=== PATIENT | female | born 1975 | race Hispanic/Latino ===

== ENCOUNTER → 2024-01-29 | Outpatient (REF) | payer OTHER ==
[~2024-01-29] MED LIST: LIDOCAINE VISC 2% SOLN 15 ML UDC ONE; LIDOCAINE/PRILOCAINE 2.5-2.5% KIT ONE
== END ==
LOC: WCC 13:48
PROVIDERS: ATTEND Nurse Practitioner Family
DX: L97.828 Non-pressure chronic ulcer of other part of left lower leg with other specified severity (principal); R60.0 Localized edema

== ENCOUNTER → 2024-02-22 | Outpatient (REF) | payer OTHER | LOC: WCC 12:07 | PROVIDERS: ATTEND Nurse Practitioner Family | DX: L97.828 Non-pressure chronic ulcer of other part of left lower leg with other specified severity (principal); R60.0 Localized edema ==

== ENCOUNTER → 2024-03-11 | Outpatient (REF) | payer OTHER | LOC: WCC 11:05 | PROVIDERS: ATTEND Nurse Practitioner Family | DX: L97.828 Non-pressure chronic ulcer of other part of left lower leg with other specified severity (principal); R60.0 Localized edema ==

== ENCOUNTER → 2024-04-25 | Outpatient (REF) | payer OTHER ==
[~2024-04-25] MED LIST changes: +COLLAGENASE OINTMENT 30 GM TUBE ONE; -LIDOCAINE VISC 2% SOLN 15 ML UDC ONE; -LIDOCAINE/PRILOCAINE 2.5-2.5% KIT ONE; +MINERAL OIL/PETROLAT/GLYCERI 6OZ BTL ONE
== END ==
LOC: WCC 08:00
PROVIDERS: ATTEND Nurse Practitioner Family
DX: L97.828 Non-pressure chronic ulcer of other part of left lower leg with other specified severity (principal); R60.0 Localized edema

== ENCOUNTER → 2024-04-27 | Outpatient (REF) | payer OTHER ==
[~2024-04-27] MED LIST changes: -COLLAGENASE OINTMENT 30 GM TUBE ONE; +LIDOCAINE VISC 2% SOLN 15 ML UDC ONE; -MINERAL OIL/PETROLAT/GLYCERI 6OZ BTL ONE
== END ==
LOC: WCC 08:00
PROVIDERS: ATTEND Nurse Practitioner Family
DX: L97.828 Non-pressure chronic ulcer of other part of left lower leg with other specified severity (principal); R60.0 Localized edema

== ENCOUNTER → 2024-05-06 | Outpatient (REF) | payer OTHER ==
[~2024-05-06] MED LIST changes: -LIDOCAINE VISC 2% SOLN 15 ML UDC ONE; +LIDOCAINE/PRILOCAINE 2.5-2.5% KIT ONE; +TRIAMCINOLONE ACET 0.1% CREAM 15 GM TUBE ONE
== END ==
LOC: WCC 08:00
PROVIDERS: ATTEND Nurse Practitioner Family
DX: L97.828 Non-pressure chronic ulcer of other part of left lower leg with other specified severity (principal); R60.0 Localized edema

== ENCOUNTER → 2024-05-09 | Outpatient (REF) | payer OTHER ==
[~2024-05-09] MED LIST changes: +LIDOCAINE VISC 2% SOLN 15 ML UDC ONE; -LIDOCAINE/PRILOCAINE 2.5-2.5% KIT ONE; +MINERAL OIL/PETROLAT/GLYCERI 6OZ BTL ONE
== END ==
LOC: WCC 15:22
PROVIDERS: ATTEND Nurse Practitioner Family
DX: L97.828 Non-pressure chronic ulcer of other part of left lower leg with other specified severity (principal); R60.0 Localized edema

== ENCOUNTER → 2024-05-11 | Outpatient (REF) | payer OTHER ==
[~2024-05-11] MED LIST changes: -LIDOCAINE VISC 2% SOLN 15 ML UDC ONE; -MINERAL OIL/PETROLAT/GLYCERI 6OZ BTL ONE
== END ==
LOC: WCC 12:43
PROVIDERS: ATTEND Nurse Practitioner Family
DX: L97.828 Non-pressure chronic ulcer of other part of left lower leg with other specified severity (principal); R60.0 Localized edema

== ENCOUNTER → 2024-05-13 | Outpatient (REF) | payer OTHER | LOC: WCC 15:24 | PROVIDERS: ATTEND Nurse Practitioner Family | DX: L97.828 Non-pressure chronic ulcer of other part of left lower leg with other specified severity (principal); R60.0 Localized edema ==

== ENCOUNTER → 2024-05-18 | Outpatient (REF) | payer OTHER | LOC: WCC 12:43 | PROVIDERS: ATTEND Nurse Practitioner Family | DX: I87.332 Chronic venous hypertension (idiopathic) with ulcer and inflammation of left lower extremity (principal); L97.822 Non-pressure chronic ulcer of other part of left lower leg with fat layer exposed; R60.0 Localized edema ==

== ENCOUNTER → 2024-05-20 | Outpatient (REF) | payer OTHER ==
[~2024-05-20] MED LIST changes: +LIDOCAINE VISC 2% SOLN 15 ML UDC ONE; +LIDOCAINE/PRILOCAINE 2.5-2.5% KIT ONE; +MINERAL OIL/PETROLAT/GLYCERI 6OZ BTL ONE; -TRIAMCINOLONE ACET 0.1% CREAM 15 GM TUBE ONE
== END ==
LOC: WCC 13:03
PROVIDERS: ATTEND Nurse Practitioner Family
DX: I87.332 Chronic venous hypertension (idiopathic) with ulcer and inflammation of left lower extremity (principal); L97.822 Non-pressure chronic ulcer of other part of left lower leg with fat layer exposed; R60.0 Localized edema

== ENCOUNTER → 2024-05-26 | Outpatient (REF) | payer OTHER ==
[~2024-05-26] MED LIST changes: -LIDOCAINE VISC 2% SOLN 15 ML UDC ONE; -LIDOCAINE/PRILOCAINE 2.5-2.5% KIT ONE
== END ==
LOC: WCC 11:53
PROVIDERS: ATTEND Nurse Practitioner Family
DX: I87.332 Chronic venous hypertension (idiopathic) with ulcer and inflammation of left lower extremity (principal); L97.822 Non-pressure chronic ulcer of other part of left lower leg with fat layer exposed; R60.0 Localized edema

== ENCOUNTER → 2024-05-30 | Outpatient (REF) | payer OTHER | LOC: WCC 11:00 | PROVIDERS: ATTEND Nurse Practitioner Family | DX: I87.332 Chronic venous hypertension (idiopathic) with ulcer and inflammation of left lower extremity (principal); L97.822 Non-pressure chronic ulcer of other part of left lower leg with fat layer exposed; R60.0 Localized edema ==

== ENCOUNTER → 2024-06-01 | Outpatient (REF) | payer OTHER | LOC: WCC 12:27 | PROVIDERS: ATTEND Nurse Practitioner Family | DX: I87.332 Chronic venous hypertension (idiopathic) with ulcer and inflammation of left lower extremity (principal); L97.822 Non-pressure chronic ulcer of other part of left lower leg with fat layer exposed; R60.0 Localized edema ==

== ENCOUNTER → 2024-06-03 | Outpatient (REF) | payer OTHER | LOC: WCC 12:24 | PROVIDERS: ATTEND Nurse Practitioner Family | DX: I87.332 Chronic venous hypertension (idiopathic) with ulcer and inflammation of left lower extremity (principal); L97.822 Non-pressure chronic ulcer of other part of left lower leg with fat layer exposed; R60.0 Localized edema ==

== ENCOUNTER → 2024-06-06 | Outpatient (REF) | payer OTHER | LOC: WCC 13:05 | PROVIDERS: ATTEND Nurse Practitioner Family | DX: I87.332 Chronic venous hypertension (idiopathic) with ulcer and inflammation of left lower extremity (principal); L97.822 Non-pressure chronic ulcer of other part of left lower leg with fat layer exposed; R60.0 Localized edema ==

== ENCOUNTER → 2024-06-08 | Outpatient (REF) | payer OTHER ==
[~2024-06-08] MED LIST changes: +LIDOCAINE/PRILOCAINE 2.5-2.5% KIT ONE; -MINERAL OIL/PETROLAT/GLYCERI 6OZ BTL ONE
== END ==
LOC: WCC 12:43
PROVIDERS: ATTEND Nurse Practitioner Family
DX: I87.332 Chronic venous hypertension (idiopathic) with ulcer and inflammation of left lower extremity (principal); L97.822 Non-pressure chronic ulcer of other part of left lower leg with fat layer exposed; R60.0 Localized edema

== ENCOUNTER → 2024-06-10 | Outpatient (REF) | payer OTHER ==
[~2024-06-10] MED LIST changes: -LIDOCAINE/PRILOCAINE 2.5-2.5% KIT ONE; +TRYPSIN/BALSAM PERU/CASTOR OIL ONE
== END ==
LOC: WCC 11:00
PROVIDERS: ATTEND Nurse Practitioner Family
DX: I87.332 Chronic venous hypertension (idiopathic) with ulcer and inflammation of left lower extremity (principal); L97.822 Non-pressure chronic ulcer of other part of left lower leg with fat layer exposed; R60.0 Localized edema

== ENCOUNTER → 2024-06-13 | Outpatient (REF) | payer OTHER ==
[~2024-06-13] MED LIST changes: +MINERAL OIL/PETROLAT/GLYCERI 6OZ BTL ONE; -TRYPSIN/BALSAM PERU/CASTOR OIL ONE
== END ==
LOC: WCC 13:30
PROVIDERS: ATTEND Nurse Practitioner Family
DX: I87.332 Chronic venous hypertension (idiopathic) with ulcer and inflammation of left lower extremity (principal); L97.822 Non-pressure chronic ulcer of other part of left lower leg with fat layer exposed; R60.0 Localized edema

== ENCOUNTER → 2024-06-16 | Outpatient (REF) | payer OTHER | LOC: WCC 11:05 | PROVIDERS: ATTEND Nurse Practitioner Family | DX: I87.332 Chronic venous hypertension (idiopathic) with ulcer and inflammation of left lower extremity (principal); L97.822 Non-pressure chronic ulcer of other part of left lower leg with fat layer exposed | CPT/HCPCS: 15271; 99212; Q4101 ×2 ==

== ENCOUNTER → 2024-06-20 | Outpatient (REF) | payer OTHER | LOC: WCC 15:12 | PROVIDERS: ATTEND Nurse Practitioner Family | DX: I87.332 Chronic venous hypertension (idiopathic) with ulcer and inflammation of left lower extremity (principal); L97.822 Non-pressure chronic ulcer of other part of left lower leg with fat layer exposed; R60.0 Localized edema ==

== ENCOUNTER → 2024-06-22 | Outpatient (REF) | payer OTHER ==
[~2024-06-22] MED LIST changes: -MINERAL OIL/PETROLAT/GLYCERI 6OZ BTL ONE; +TRIAMCINOLONE ACET 0.1% CREAM 15 GM TUBE ONE
== END ==
LOC: WCC 12:20
PROVIDERS: ATTEND Nurse Practitioner Family
DX: I87.332 Chronic venous hypertension (idiopathic) with ulcer and inflammation of left lower extremity (principal); L97.822 Non-pressure chronic ulcer of other part of left lower leg with fat layer exposed; R60.0 Localized edema

== ENCOUNTER → 2024-06-24 | Outpatient (REF) | payer OTHER ==
[~2024-06-24] MED LIST changes: +MINERAL OIL/PETROLAT/GLYCERI 6OZ BTL ONE
== END ==
LOC: WCC 11:52
PROVIDERS: ATTEND Nurse Practitioner Family
DX: I87.332 Chronic venous hypertension (idiopathic) with ulcer and inflammation of left lower extremity (principal); L97.822 Non-pressure chronic ulcer of other part of left lower leg with fat layer exposed; R60.0 Localized edema
CPT/HCPCS: 15271; 29581; 99212; Q4101 ×2

== ENCOUNTER → 2024-06-28 | Outpatient (REF) | payer OTHER | LOC: WCC 12:38 | PROVIDERS: ATTEND Nurse Practitioner Family | DX: I87.332 Chronic venous hypertension (idiopathic) with ulcer and inflammation of left lower extremity (principal); L97.822 Non-pressure chronic ulcer of other part of left lower leg with fat layer exposed; R60.0 Localized edema ==

== ENCOUNTER → 2024-07-01 | Outpatient (REF) | payer OTHER | LOC: WCC 15:44 | PROVIDERS: ATTEND Nurse Practitioner Family | DX: I87.332 Chronic venous hypertension (idiopathic) with ulcer and inflammation of left lower extremity (principal); L97.822 Non-pressure chronic ulcer of other part of left lower leg with fat layer exposed; R60.0 Localized edema ==

== ENCOUNTER → 2024-07-04 | Outpatient (REF) | payer OTHER | LOC: WCC 15:30 | PROVIDERS: ATTEND Nurse Practitioner Family | DX: I87.332 Chronic venous hypertension (idiopathic) with ulcer and inflammation of left lower extremity (principal); L97.822 Non-pressure chronic ulcer of other part of left lower leg with fat layer exposed; R60.0 Localized edema ==

== ENCOUNTER → 2024-07-06 | Outpatient (REF) | payer OTHER ==
[~2024-07-06] MED LIST changes: +LIDOCAINE/PRILOCAINE 2.5-2.5% KIT ONE; -TRIAMCINOLONE ACET 0.1% CREAM 15 GM TUBE ONE
== END ==
LOC: WCC 11:24
PROVIDERS: ATTEND Nurse Practitioner Family
DX: I87.332 Chronic venous hypertension (idiopathic) with ulcer and inflammation of left lower extremity (principal); L97.822 Non-pressure chronic ulcer of other part of left lower leg with fat layer exposed; R60.0 Localized edema
CPT/HCPCS: 15271; 99212; Q4101 ×2

== ENCOUNTER → 2024-07-15 | Outpatient (REF) | payer OTHER | LOC: WCC 10:29 | PROVIDERS: ATTEND Nurse Practitioner Family | DX: I87.332 Chronic venous hypertension (idiopathic) with ulcer and inflammation of left lower extremity (principal); L97.822 Non-pressure chronic ulcer of other part of left lower leg with fat layer exposed; R60.0 Localized edema ==

== ENCOUNTER → 2024-07-18 | Outpatient (REF) | payer OTHER ==
[~2024-07-18] MED LIST changes: -LIDOCAINE/PRILOCAINE 2.5-2.5% KIT ONE
== END ==
LOC: WCC 09:56
PROVIDERS: ATTEND Nurse Practitioner Family
DX: I87.332 Chronic venous hypertension (idiopathic) with ulcer and inflammation of left lower extremity (principal); L97.822 Non-pressure chronic ulcer of other part of left lower leg with fat layer exposed; R60.0 Localized edema

== ENCOUNTER → 2024-07-20 | Outpatient (REF) | payer OTHER ==
[~2024-07-20] MED LIST changes: +LIDOCAINE VISC 2% SOLN 15 ML UDC ONE
== END ==
LOC: WCC 13:00
PROVIDERS: ATTEND Nurse Practitioner Family
DX: I87.332 Chronic venous hypertension (idiopathic) with ulcer and inflammation of left lower extremity (principal); L97.822 Non-pressure chronic ulcer of other part of left lower leg with fat layer exposed; R60.0 Localized edema

== ENCOUNTER → 2024-07-26 | Outpatient (REF) | payer OTHER ==
[~2024-07-26] MED LIST changes: +LIDOCAINE/PRILOCAINE 2.5-2.5% KIT ONE; +TRIAMCINOLONE ACET 0.1% CREAM 15 GM TUBE ONE
== END ==
LOC: WCC 09:19
PROVIDERS: ATTEND Nurse Practitioner Family
DX: I87.332 Chronic venous hypertension (idiopathic) with ulcer and inflammation of left lower extremity (principal); L97.822 Non-pressure chronic ulcer of other part of left lower leg with fat layer exposed; R60.0 Localized edema

== ENCOUNTER → 2024-08-02 | Outpatient (REF) | payer OTHER | LOC: WCC 10:40 | PROVIDERS: ATTEND Nurse Practitioner Family | DX: I87.332 Chronic venous hypertension (idiopathic) with ulcer and inflammation of left lower extremity (principal); L97.822 Non-pressure chronic ulcer of other part of left lower leg with fat layer exposed; R60.0 Localized edema ==

== ENCOUNTER → 2024-08-09 | Outpatient (REF) | payer OTHER ==
[~2024-08-09] MED LIST changes: -TRIAMCINOLONE ACET 0.1% CREAM 15 GM TUBE ONE
== END ==
LOC: WCC 10:15
PROVIDERS: ATTEND Nurse Practitioner Family
DX: I87.332 Chronic venous hypertension (idiopathic) with ulcer and inflammation of left lower extremity (principal); L97.822 Non-pressure chronic ulcer of other part of left lower leg with fat layer exposed; R60.0 Localized edema

== ENCOUNTER → 2024-08-16 | Outpatient (REF) | payer OTHER | LOC: WCC 10:42 | PROVIDERS: ATTEND Nurse Practitioner Family | DX: I87.332 Chronic venous hypertension (idiopathic) with ulcer and inflammation of left lower extremity (principal); L97.822 Non-pressure chronic ulcer of other part of left lower leg with fat layer exposed; R60.0 Localized edema ==

== ENCOUNTER → 2024-08-23 | Outpatient (REF) | payer OTHER | LOC: WCC 10:40 | PROVIDERS: ATTEND Nurse Practitioner Family | DX: I87.332 Chronic venous hypertension (idiopathic) with ulcer and inflammation of left lower extremity (principal); L97.822 Non-pressure chronic ulcer of other part of left lower leg with fat layer exposed; R60.0 Localized edema ==

== ENCOUNTER → 2024-08-26 | Outpatient (REF) | payer OTHER | LOC: WCC 08:00 | PROVIDERS: ATTEND Nurse Practitioner Family | DX: I87.332 Chronic venous hypertension (idiopathic) with ulcer and inflammation of left lower extremity (principal); L97.822 Non-pressure chronic ulcer of other part of left lower leg with fat layer exposed; R60.0 Localized edema ==

== ENCOUNTER → 2024-08-30 | Outpatient (REF) | payer OTHER | LOC: WCC 10:18 | PROVIDERS: ATTEND Nurse Practitioner Family | DX: I87.332 Chronic venous hypertension (idiopathic) with ulcer and inflammation of left lower extremity (principal); L97.822 Non-pressure chronic ulcer of other part of left lower leg with fat layer exposed; R60.0 Localized edema | CPT/HCPCS: 87071; 87075; 87186; 87205 ==

== ENCOUNTER → 2024-09-02 | Outpatient (REF) | payer OTHER | LOC: WCC 10:24 | PROVIDERS: ATTEND Nurse Practitioner Family | DX: I87.332 Chronic venous hypertension (idiopathic) with ulcer and inflammation of left lower extremity (principal); L97.822 Non-pressure chronic ulcer of other part of left lower leg with fat layer exposed; B96.5 Pseudomonas (aeruginosa) (mallei) (pseudomallei) as the cause of diseases classified elsewhere; R60.0 Localized edema ==

== ENCOUNTER → 2024-09-06 | Outpatient (REF) | payer OTHER | LOC: WCC 10:08 | PROVIDERS: ATTEND Nurse Practitioner Family | DX: I87.332 Chronic venous hypertension (idiopathic) with ulcer and inflammation of left lower extremity (principal); L97.822 Non-pressure chronic ulcer of other part of left lower leg with fat layer exposed; R60.0 Localized edema; B96.5 Pseudomonas (aeruginosa) (mallei) (pseudomallei) as the cause of diseases classified elsewhere ==

== ENCOUNTER → 2024-09-09 | Outpatient (REF) | payer OTHER | LOC: WCC 10:26 | PROVIDERS: ATTEND Nurse Practitioner Family | DX: I87.332 Chronic venous hypertension (idiopathic) with ulcer and inflammation of left lower extremity (principal); L97.822 Non-pressure chronic ulcer of other part of left lower leg with fat layer exposed; R60.0 Localized edema ==

== ENCOUNTER → 2024-09-14 | Outpatient (REF) | payer OTHER ==
[2024-09-14 15:03] LABS: BASOPHILS % 0.5 % (0.0-1.0); EOSINOPHILS % 0.6 % (0.0-6.0); HEMOGLOBIN 13.4 g/dL (12.0-16.0); LYMPHOCYTES # (AUTO) 2.1 (1.0-3.2); LYMPHOCYTES % 34.6 % (18.0-39.1); MEAN CORPUSCULAR HEMOGLOBIN 28.7 pg (28-32); MEAN CORPUSCULAR HGB CONC 31.2 g/dL (31-35); MEAN CORPUSCULAR VOLUME 92.1 fL (81-99); MONOCYTES # (AUTO) 0.4 (0.2-0.8); MONOCYTES % 6.6 % (4.4-11.3); NEUTROPHILS # (AUTO) 3.6 (2.1-6.9); NEUTROPHILS % 57.4 % (38.7-80.0); PLATELET COUNT 188 x10e3/uL (140-360); RED BLOOD COUNT 4.67 x10e6/uL (3.6-5.1); WHITE BLOOD COUNT 6.19 x10e3/uL (4.8-10.8)
[2024-09-14 15:23] LABS: ALBUMIN 3.7 g/dL (3.5-5.0); ALBUMIN/GLOBULIN RATIO 1.1 (0.8-2.0); ANION GAP 14.6 mmol/L (8-16); BILIRUBIN,TOTAL 0.5 mg/dL (0.2-1.2); CALCIUM 9.1 mg/dL (8.4-10.2); CREATININE, SERUM 0.97 mg/dL (0.57-1.11); POTASSIUM 3.6 mmol/L (3.5-5.1); TOTAL PROTEIN 7.2 g/dL (6.5-8.1)
== END ==
LOC: WCC 13:29
PROVIDERS: ATTEND Nurse Practitioner Family
DX: I87.332 Chronic venous hypertension (idiopathic) with ulcer and inflammation of left lower extremity (principal); L97.822 Non-pressure chronic ulcer of other part of left lower leg with fat layer exposed; R60.0 Localized edema
CPT/HCPCS: 36415; 80053; 84134; 85025

== ENCOUNTER → 2024-09-16 | Outpatient (REF) | payer OTHER | LOC: WCC 10:21 | PROVIDERS: ATTEND Nurse Practitioner Family | DX: I87.332 Chronic venous hypertension (idiopathic) with ulcer and inflammation of left lower extremity (principal); L97.822 Non-pressure chronic ulcer of other part of left lower leg with fat layer exposed; R60.0 Localized edema ==

== ENCOUNTER → 2024-09-19 | Outpatient (REF) | payer OTHER | LOC: WCC 10:40 | PROVIDERS: ATTEND Nurse Practitioner Family | DX: I87.332 Chronic venous hypertension (idiopathic) with ulcer and inflammation of left lower extremity (principal); L97.822 Non-pressure chronic ulcer of other part of left lower leg with fat layer exposed; R60.0 Localized edema ==

== ENCOUNTER → 2024-09-21 | Outpatient (REF) | payer OTHER | LOC: WCC 12:50 | PROVIDERS: ATTEND Nurse Practitioner Family | DX: I87.332 Chronic venous hypertension (idiopathic) with ulcer and inflammation of left lower extremity (principal); L97.822 Non-pressure chronic ulcer of other part of left lower leg with fat layer exposed; R60.0 Localized edema | CPT/HCPCS: 15271; 29581; 99212; Q4101 ×2 ==

== ENCOUNTER → 2024-09-28 | Outpatient (REF) | payer OTHER | LOC: WCC 13:00 | PROVIDERS: ATTEND Nurse Practitioner Family | DX: I87.332 Chronic venous hypertension (idiopathic) with ulcer and inflammation of left lower extremity (principal); L97.822 Non-pressure chronic ulcer of other part of left lower leg with fat layer exposed; L97.828 Non-pressure chronic ulcer of other part of left lower leg with other specified severity; R60.0 Localized edema ==

== ENCOUNTER → 2024-09-30 | Outpatient (REF) | payer OTHER ==
[~2024-09-30] MED LIST changes: -LIDOCAINE/PRILOCAINE 2.5-2.5% KIT ONE; -MINERAL OIL/PETROLAT/GLYCERI 6OZ BTL ONE
== END ==
LOC: WCC 14:07
PROVIDERS: ATTEND Nurse Practitioner Family
DX: I87.332 Chronic venous hypertension (idiopathic) with ulcer and inflammation of left lower extremity (principal); L97.822 Non-pressure chronic ulcer of other part of left lower leg with fat layer exposed; L97.828 Non-pressure chronic ulcer of other part of left lower leg with other specified severity; R60.0 Localized edema
CPT/HCPCS: 15271; 29581; 99212; Q4101 ×2

== ENCOUNTER → 2024-10-03 | Outpatient (REF) | payer OTHER | LOC: WCC 14:44 | PROVIDERS: ATTEND Nurse Practitioner Family | DX: I87.332 Chronic venous hypertension (idiopathic) with ulcer and inflammation of left lower extremity (principal); L97.828 Non-pressure chronic ulcer of other part of left lower leg with other specified severity; L97.822 Non-pressure chronic ulcer of other part of left lower leg with fat layer exposed ==

== ENCOUNTER → 2024-10-05 | Outpatient (REF) | payer OTHER | LOC: WCC 15:00 | PROVIDERS: ATTEND Nurse Practitioner Family | DX: I87.332 Chronic venous hypertension (idiopathic) with ulcer and inflammation of left lower extremity (principal); L97.822 Non-pressure chronic ulcer of other part of left lower leg with fat layer exposed; L97.828 Non-pressure chronic ulcer of other part of left lower leg with other specified severity ==

== ENCOUNTER → 2024-10-07 | Outpatient (REF) | payer OTHER ==
[~2024-10-07] MED LIST changes: -LIDOCAINE VISC 2% SOLN 15 ML UDC ONE; +MINERAL OIL/PETROLAT/GLYCERI 6OZ BTL ONE
== END ==
LOC: WCC 05:00
PROVIDERS: ATTEND Nurse Practitioner Family
DX: I87.332 Chronic venous hypertension (idiopathic) with ulcer and inflammation of left lower extremity (principal); L97.822 Non-pressure chronic ulcer of other part of left lower leg with fat layer exposed; L97.828 Non-pressure chronic ulcer of other part of left lower leg with other specified severity; D68.61 Antiphospholipid syndrome; R60.0 Localized edema

== ENCOUNTER → 2024-10-10 | Outpatient (REF) | payer OTHER | LOC: WCC 08:00 | PROVIDERS: ATTEND Nurse Practitioner Family | DX: I87.332 Chronic venous hypertension (idiopathic) with ulcer and inflammation of left lower extremity (principal); L97.822 Non-pressure chronic ulcer of other part of left lower leg with fat layer exposed; L97.828 Non-pressure chronic ulcer of other part of left lower leg with other specified severity; L95.9 Vasculitis limited to the skin, unspecified; M32.10 Systemic lupus erythematosus, organ or system involvement unspecified; I87.2 Venous insufficiency (chronic) (peripheral); R60.0 Localized edema; D68.61 Antiphospholipid syndrome ==

== ENCOUNTER → 2024-10-12 | Outpatient (REF) | payer OTHER | LOC: WCC 15:30 | PROVIDERS: ATTEND Nurse Practitioner Family | DX: I87.332 Chronic venous hypertension (idiopathic) with ulcer and inflammation of left lower extremity (principal); L97.828 Non-pressure chronic ulcer of other part of left lower leg with other specified severity; L97.822 Non-pressure chronic ulcer of other part of left lower leg with fat layer exposed; R60.0 Localized edema; D68.61 Antiphospholipid syndrome ==

== ENCOUNTER → 2024-10-18 | Outpatient (REF) | payer OTHER | LOC: WCC 11:32 | PROVIDERS: ATTEND Nurse Practitioner Family | DX: I87.332 Chronic venous hypertension (idiopathic) with ulcer and inflammation of left lower extremity (principal); L97.822 Non-pressure chronic ulcer of other part of left lower leg with fat layer exposed; L97.828 Non-pressure chronic ulcer of other part of left lower leg with other specified severity; R60.0 Localized edema ==

== ENCOUNTER → 2024-10-21 | Outpatient (REF) | payer OTHER | LOC: WCC 10:45 | PROVIDERS: ATTEND Nurse Practitioner Family | DX: I87.332 Chronic venous hypertension (idiopathic) with ulcer and inflammation of left lower extremity (principal); L97.822 Non-pressure chronic ulcer of other part of left lower leg with fat layer exposed; L97.828 Non-pressure chronic ulcer of other part of left lower leg with other specified severity; R60.0 Localized edema ==

== ENCOUNTER → 2024-10-25 | Outpatient (REF) | payer OTHER | LOC: WCC 12:28 | PROVIDERS: ATTEND Nurse Practitioner Family | DX: I87.332 Chronic venous hypertension (idiopathic) with ulcer and inflammation of left lower extremity (principal); L97.822 Non-pressure chronic ulcer of other part of left lower leg with fat layer exposed; L97.828 Non-pressure chronic ulcer of other part of left lower leg with other specified severity; R60.0 Localized edema ==

== ENCOUNTER → 2024-10-28 | Outpatient (REF) | payer OTHER | LOC: WCC 15:00 | PROVIDERS: ATTEND Nurse Practitioner Family | DX: I87.332 Chronic venous hypertension (idiopathic) with ulcer and inflammation of left lower extremity (principal); L97.822 Non-pressure chronic ulcer of other part of left lower leg with fat layer exposed; L97.828 Non-pressure chronic ulcer of other part of left lower leg with other specified severity; R60.0 Localized edema ==

== ENCOUNTER → 2024-11-02 | Outpatient (REF) | payer OTHER | LOC: WCC 14:23 | PROVIDERS: ATTEND Nurse Practitioner Family | DX: I87.332 Chronic venous hypertension (idiopathic) with ulcer and inflammation of left lower extremity (principal); L97.822 Non-pressure chronic ulcer of other part of left lower leg with fat layer exposed; L97.828 Non-pressure chronic ulcer of other part of left lower leg with other specified severity; R60.0 Localized edema ==

== ENCOUNTER → 2024-11-04 | Outpatient (REF) | payer OTHER | LOC: WCC 12:37 | PROVIDERS: ATTEND Nurse Practitioner Family | DX: I87.332 Chronic venous hypertension (idiopathic) with ulcer and inflammation of left lower extremity (principal); L97.822 Non-pressure chronic ulcer of other part of left lower leg with fat layer exposed; L97.828 Non-pressure chronic ulcer of other part of left lower leg with other specified severity; R60.0 Localized edema ==

== ENCOUNTER → 2024-11-08 | Outpatient (REF) | payer OTHER | LOC: WCC 16:19 | PROVIDERS: ATTEND Nurse Practitioner Family | DX: I87.332 Chronic venous hypertension (idiopathic) with ulcer and inflammation of left lower extremity (principal); L97.822 Non-pressure chronic ulcer of other part of left lower leg with fat layer exposed; L97.828 Non-pressure chronic ulcer of other part of left lower leg with other specified severity; R60.0 Localized edema ==

== ENCOUNTER → 2024-11-11 | Outpatient (REF) | payer OTHER | LOC: WCC 12:24 | PROVIDERS: ATTEND Nurse Practitioner Family | DX: I87.332 Chronic venous hypertension (idiopathic) with ulcer and inflammation of left lower extremity (principal); L97.822 Non-pressure chronic ulcer of other part of left lower leg with fat layer exposed; L97.828 Non-pressure chronic ulcer of other part of left lower leg with other specified severity; R60.0 Localized edema ==

== ENCOUNTER → 2024-11-17 | Outpatient (REF) | payer OTHER ==
[~2024-11-17] MED LIST changes: +LIDOCAINE VISC 2% SOLN 15 ML UDC ONE; +LIDOCAINE/PRILOCAINE 2.5-2.5% KIT ONE; -MINERAL OIL/PETROLAT/GLYCERI 6OZ BTL ONE
== END ==
LOC: WCC 11:04
PROVIDERS: ATTEND Nurse Practitioner Family
DX: I87.332 Chronic venous hypertension (idiopathic) with ulcer and inflammation of left lower extremity (principal); L97.822 Non-pressure chronic ulcer of other part of left lower leg with fat layer exposed; L97.828 Non-pressure chronic ulcer of other part of left lower leg with other specified severity; R60.0 Localized edema

== ENCOUNTER → 2024-11-21 | Outpatient (REF) | payer OTHER ==
[~2024-11-21] MED LIST changes: -LIDOCAINE VISC 2% SOLN 15 ML UDC ONE; +MINERAL OIL/PETROLAT/GLYCERI 6OZ BTL ONE
== END ==
LOC: WCC 13:00
PROVIDERS: ATTEND Nurse Practitioner Family
DX: I87.332 Chronic venous hypertension (idiopathic) with ulcer and inflammation of left lower extremity (principal); L97.822 Non-pressure chronic ulcer of other part of left lower leg with fat layer exposed; L97.828 Non-pressure chronic ulcer of other part of left lower leg with other specified severity; R60.0 Localized edema

== ENCOUNTER → 2024-11-24 | Outpatient (REF) | payer OTHER | LOC: WCC 13:06 | PROVIDERS: ATTEND Nurse Practitioner Family | DX: I87.332 Chronic venous hypertension (idiopathic) with ulcer and inflammation of left lower extremity (principal); L97.822 Non-pressure chronic ulcer of other part of left lower leg with fat layer exposed; L97.828 Non-pressure chronic ulcer of other part of left lower leg with other specified severity; R60.0 Localized edema ==

== ENCOUNTER → 2024-11-29 | Outpatient (REF) | payer OTHER ==
[~2024-11-29] MED LIST changes: +LIDOCAINE VISC 2% SOLN 15 ML UDC ONE; -MINERAL OIL/PETROLAT/GLYCERI 6OZ BTL ONE
== END ==
LOC: WCC 10:36
PROVIDERS: ATTEND Nurse Practitioner Family
DX: I87.332 Chronic venous hypertension (idiopathic) with ulcer and inflammation of left lower extremity (principal); L97.822 Non-pressure chronic ulcer of other part of left lower leg with fat layer exposed; L97.828 Non-pressure chronic ulcer of other part of left lower leg with other specified severity; R60.0 Localized edema

== ENCOUNTER → 2024-12-06 | Outpatient (REF) | payer OTHER | LOC: WCC 11:03 | PROVIDERS: ATTEND Nurse Practitioner Family | DX: I87.332 Chronic venous hypertension (idiopathic) with ulcer and inflammation of left lower extremity (principal); L97.822 Non-pressure chronic ulcer of other part of left lower leg with fat layer exposed; L97.828 Non-pressure chronic ulcer of other part of left lower leg with other specified severity; R60.0 Localized edema ==

== ENCOUNTER → 2024-12-15 | Outpatient (REF) | payer OTHER | LOC: WCC 12:29 | PROVIDERS: ATTEND Nurse Practitioner Family | DX: I87.332 Chronic venous hypertension (idiopathic) with ulcer and inflammation of left lower extremity (principal); L97.822 Non-pressure chronic ulcer of other part of left lower leg with fat layer exposed; L97.828 Non-pressure chronic ulcer of other part of left lower leg with other specified severity; R60.0 Localized edema ==

== ENCOUNTER → 2024-12-19 | Outpatient (REF) | payer OTHER | LOC: WCC 13:10 | PROVIDERS: ATTEND Nurse Practitioner Family | DX: I87.332 Chronic venous hypertension (idiopathic) with ulcer and inflammation of left lower extremity (principal); L97.822 Non-pressure chronic ulcer of other part of left lower leg with fat layer exposed; L97.828 Non-pressure chronic ulcer of other part of left lower leg with other specified severity; R60.0 Localized edema ==

== ENCOUNTER → 2024-12-23 | Outpatient (REF) | payer OTHER | LOC: WCC 11:33 | PROVIDERS: ATTEND Nurse Practitioner Family | DX: I87.332 Chronic venous hypertension (idiopathic) with ulcer and inflammation of left lower extremity (principal); L97.822 Non-pressure chronic ulcer of other part of left lower leg with fat layer exposed; L97.828 Non-pressure chronic ulcer of other part of left lower leg with other specified severity; R60.0 Localized edema ==

== ENCOUNTER 2024-12-27 12:30 | Outpatient (RCR) | payer OTHER ==
[2024-12-27] MEDS ORDERED: MINERAL OIL/PETROLAT/GLYCERI 6OZ BTL ONE (14:15)
== END 2025-01-23 ==
LOC: WCC 12:30
PROVIDERS: ATTEND Nurse Practitioner Family
DX: I87.332 Chronic venous hypertension (idiopathic) with ulcer and inflammation of left lower extremity (principal); L97.822 Non-pressure chronic ulcer of other part of left lower leg with fat layer exposed; L97.828 Non-pressure chronic ulcer of other part of left lower leg with other specified severity; R60.0 Localized edema; D68.61 Antiphospholipid syndrome

== ENCOUNTER → 2024-12-30 | Outpatient (REF) | payer OTHER | LOC: WCC 10:58 | PROVIDERS: ATTEND Nurse Practitioner Family | DX: I87.332 Chronic venous hypertension (idiopathic) with ulcer and inflammation of left lower extremity (principal); L97.822 Non-pressure chronic ulcer of other part of left lower leg with fat layer exposed; R60.0 Localized edema ==

== ENCOUNTER → 2025-01-03 | Outpatient (REF) | payer OTHER | LOC: WCC 09:29 | PROVIDERS: ATTEND Nurse Practitioner Family | DX: I87.332 Chronic venous hypertension (idiopathic) with ulcer and inflammation of left lower extremity (principal); L97.822 Non-pressure chronic ulcer of other part of left lower leg with fat layer exposed; R60.0 Localized edema ==

== ENCOUNTER → 2025-01-06 | Outpatient (REF) | payer OTHER | LOC: WCC 11:06 | PROVIDERS: ATTEND Nurse Practitioner Family | DX: I87.332 Chronic venous hypertension (idiopathic) with ulcer and inflammation of left lower extremity (principal); L97.822 Non-pressure chronic ulcer of other part of left lower leg with fat layer exposed; R60.0 Localized edema ==

== ENCOUNTER → 2025-01-10 | Outpatient (REF) | payer OTHER | LOC: WCC 09:35 | PROVIDERS: ATTEND Nurse Practitioner Family | DX: I87.332 Chronic venous hypertension (idiopathic) with ulcer and inflammation of left lower extremity (principal); L97.822 Non-pressure chronic ulcer of other part of left lower leg with fat layer exposed; R60.0 Localized edema ==

== ENCOUNTER → 2025-01-12 | Outpatient (REF) | payer OTHER | LOC: WCC 11:04 | PROVIDERS: ATTEND Nurse Practitioner Family | DX: I87.332 Chronic venous hypertension (idiopathic) with ulcer and inflammation of left lower extremity (principal); L97.822 Non-pressure chronic ulcer of other part of left lower leg with fat layer exposed; R60.0 Localized edema ==

== ENCOUNTER → 2025-01-17 | Outpatient (REF) | payer OTHER | LOC: WCC 12:54 | PROVIDERS: ATTEND Nurse Practitioner Family | DX: I87.332 Chronic venous hypertension (idiopathic) with ulcer and inflammation of left lower extremity (principal); L97.822 Non-pressure chronic ulcer of other part of left lower leg with fat layer exposed; R60.0 Localized edema ==

== ENCOUNTER → 2025-01-20 | Outpatient (REF) | payer OTHER | LOC: WCC 10:07 | PROVIDERS: ATTEND Nurse Practitioner Family | DX: I87.332 Chronic venous hypertension (idiopathic) with ulcer and inflammation of left lower extremity (principal); L97.822 Non-pressure chronic ulcer of other part of left lower leg with fat layer exposed; R60.0 Localized edema ==

== ENCOUNTER → 2025-01-27 | Outpatient (REF) | payer OTHER | LOC: WCC 11:02 | PROVIDERS: ATTEND Nurse Practitioner Family | DX: I87.332 Chronic venous hypertension (idiopathic) with ulcer and inflammation of left lower extremity (principal); L97.822 Non-pressure chronic ulcer of other part of left lower leg with fat layer exposed; R60.0 Localized edema ==

== ENCOUNTER → 2025-01-30 | Outpatient (REF) | payer OTHER | LOC: WCC 08:55 | PROVIDERS: ATTEND Internal Medicine Infectious Disease | DX: I87.332 Chronic venous hypertension (idiopathic) with ulcer and inflammation of left lower extremity (principal); L97.822 Non-pressure chronic ulcer of other part of left lower leg with fat layer exposed; R60.0 Localized edema ==

== ENCOUNTER → 2025-02-03 | Outpatient (REF) | payer OTHER | LOC: WCC 10:52 | PROVIDERS: ATTEND Nurse Practitioner Family | DX: I87.332 Chronic venous hypertension (idiopathic) with ulcer and inflammation of left lower extremity (principal); L97.822 Non-pressure chronic ulcer of other part of left lower leg with fat layer exposed; R60.0 Localized edema ==

== ENCOUNTER → 2025-02-07 | Outpatient (REF) | payer OTHER | LOC: WCC 09:07 | PROVIDERS: ATTEND Nurse Practitioner Family | DX: I87.332 Chronic venous hypertension (idiopathic) with ulcer and inflammation of left lower extremity (principal); L97.822 Non-pressure chronic ulcer of other part of left lower leg with fat layer exposed; R60.0 Localized edema ==

== ENCOUNTER → 2025-02-09 | Outpatient (REF) | payer OTHER | LOC: WCC 10:35 | PROVIDERS: ATTEND Nurse Practitioner Family | DX: I87.332 Chronic venous hypertension (idiopathic) with ulcer and inflammation of left lower extremity (principal); L97.822 Non-pressure chronic ulcer of other part of left lower leg with fat layer exposed; R60.0 Localized edema ==

== ENCOUNTER → 2025-02-14 | Outpatient (REF) | payer OTHER | LOC: WCC 09:30 | PROVIDERS: ATTEND Nurse Practitioner Family | DX: I87.332 Chronic venous hypertension (idiopathic) with ulcer and inflammation of left lower extremity (principal); L97.822 Non-pressure chronic ulcer of other part of left lower leg with fat layer exposed; R60.0 Localized edema ==

== ENCOUNTER → 2025-02-17 | Outpatient (REF) | payer OTHER | LOC: WCC 11:31 | PROVIDERS: ATTEND Nurse Practitioner Family | DX: I87.332 Chronic venous hypertension (idiopathic) with ulcer and inflammation of left lower extremity (principal); L97.822 Non-pressure chronic ulcer of other part of left lower leg with fat layer exposed; R60.0 Localized edema ==

== ENCOUNTER → 2025-02-22 | Outpatient (REF) | payer OTHER | LOC: WCC 11:40 | PROVIDERS: ATTEND Nurse Practitioner Family | DX: I87.332 Chronic venous hypertension (idiopathic) with ulcer and inflammation of left lower extremity (principal); L97.822 Non-pressure chronic ulcer of other part of left lower leg with fat layer exposed; R60.0 Localized edema ==

== ENCOUNTER → 2025-02-28 | Outpatient (REF) | payer OTHER ==
[~2025-02-28] MED LIST changes: -LIDOCAINE VISC 2% SOLN 15 ML UDC ONE
== END ==
LOC: WCC 12:28
PROVIDERS: ATTEND Nurse Practitioner Family
DX: I87.332 Chronic venous hypertension (idiopathic) with ulcer and inflammation of left lower extremity (principal); L97.822 Non-pressure chronic ulcer of other part of left lower leg with fat layer exposed; R60.0 Localized edema

== ENCOUNTER → 2025-03-02 | Outpatient (REF) | payer OTHER ==
[~2025-03-02] MED LIST changes: -LIDOCAINE/PRILOCAINE 2.5-2.5% KIT ONE; +MINERAL OIL/PETROLAT/GLYCERI 6OZ BTL ONE
== END ==
LOC: WCC 15:40
PROVIDERS: ATTEND Nurse Practitioner Family
DX: I87.332 Chronic venous hypertension (idiopathic) with ulcer and inflammation of left lower extremity (principal); L97.822 Non-pressure chronic ulcer of other part of left lower leg with fat layer exposed; R60.0 Localized edema

== ENCOUNTER → 2025-03-08 | Outpatient (REF) | payer OTHER ==
[~2025-03-08] MED LIST changes: +BALSAM PERU/CASTOR OIL 28.35 GM OINT...G. TP ONE; +LIDOCAINE VISC 2% SOLN 15 ML UDC ONE; -MINERAL OIL/PETROLAT/GLYCERI 6OZ BTL ONE
== END ==
LOC: WCC 11:09
PROVIDERS: ATTEND Nurse Practitioner Family
DX: I87.332 Chronic venous hypertension (idiopathic) with ulcer and inflammation of left lower extremity (principal); L97.822 Non-pressure chronic ulcer of other part of left lower leg with fat layer exposed; R60.0 Localized edema

== ENCOUNTER → 2025-03-15 | Outpatient (REF) | payer OTHER | LOC: WCC 10:59 | PROVIDERS: ATTEND Nurse Practitioner Family | DX: I87.332 Chronic venous hypertension (idiopathic) with ulcer and inflammation of left lower extremity (principal); L97.822 Non-pressure chronic ulcer of other part of left lower leg with fat layer exposed; R60.0 Localized edema ==

== ENCOUNTER → 2025-03-31 | Outpatient (REF) | payer OTHER | LOC: WCC 08:00 | PROVIDERS: ATTEND Nurse Practitioner Family | DX: I87.332 Chronic venous hypertension (idiopathic) with ulcer and inflammation of left lower extremity (principal); L97.822 Non-pressure chronic ulcer of other part of left lower leg with fat layer exposed; R60.0 Localized edema ==

== ENCOUNTER → 2025-04-04 | Outpatient (REF) | payer OTHER | LOC: WCC 10:33 | PROVIDERS: ATTEND Nurse Practitioner Family | DX: I87.332 Chronic venous hypertension (idiopathic) with ulcer and inflammation of left lower extremity (principal); L97.822 Non-pressure chronic ulcer of other part of left lower leg with fat layer exposed; R60.0 Localized edema ==

== ENCOUNTER → 2025-04-07 | Outpatient (REF) | payer OTHER | LOC: WCC 11:49 | PROVIDERS: ATTEND Nurse Practitioner Family | DX: I87.332 Chronic venous hypertension (idiopathic) with ulcer and inflammation of left lower extremity (principal); L97.822 Non-pressure chronic ulcer of other part of left lower leg with fat layer exposed; R60.0 Localized edema ==

== ENCOUNTER → 2025-04-10 | Outpatient (REF) | payer OTHER | LOC: WCC 09:27 | PROVIDERS: ATTEND Nurse Practitioner Family | DX: I87.332 Chronic venous hypertension (idiopathic) with ulcer and inflammation of left lower extremity (principal); L97.822 Non-pressure chronic ulcer of other part of left lower leg with fat layer exposed; R60.0 Localized edema ==

== ENCOUNTER → 2025-04-13 | Outpatient (REF) | payer OTHER | LOC: WCC 10:33 | PROVIDERS: ATTEND Nurse Practitioner Family | DX: I87.332 Chronic venous hypertension (idiopathic) with ulcer and inflammation of left lower extremity (principal); L97.822 Non-pressure chronic ulcer of other part of left lower leg with fat layer exposed; R60.0 Localized edema ==

== ENCOUNTER → 2025-04-18 | Outpatient (REF) | payer OTHER | LOC: WCC 10:00 | PROVIDERS: ATTEND Nurse Practitioner Family | DX: I87.332 Chronic venous hypertension (idiopathic) with ulcer and inflammation of left lower extremity (principal); L97.822 Non-pressure chronic ulcer of other part of left lower leg with fat layer exposed; R60.0 Localized edema ==

== ENCOUNTER → 2025-04-20 | Outpatient (REF) | payer OTHER | LOC: WCC 10:47 | PROVIDERS: ATTEND Nurse Practitioner Family | DX: I87.332 Chronic venous hypertension (idiopathic) with ulcer and inflammation of left lower extremity (principal); L97.822 Non-pressure chronic ulcer of other part of left lower leg with fat layer exposed; R60.0 Localized edema ==

== ENCOUNTER → 2025-04-24 | Outpatient (REF) | payer OTHER | LOC: WCC 08:00 | PROVIDERS: ATTEND Nurse Practitioner Family | DX: I87.332 Chronic venous hypertension (idiopathic) with ulcer and inflammation of left lower extremity (principal); L97.822 Non-pressure chronic ulcer of other part of left lower leg with fat layer exposed; R60.0 Localized edema ==

== ENCOUNTER → 2025-04-26 | Outpatient (REF) | payer OTHER ==
[~2025-04-26] MED LIST changes: -BALSAM PERU/CASTOR OIL 28.35 GM OINT...G. TP ONE; +LIDOCAINE/PRILOCAINE 2.5-2.5% KIT ONE
== END ==
LOC: WCC 13:43
PROVIDERS: ATTEND Nurse Practitioner Family
DX: I87.332 Chronic venous hypertension (idiopathic) with ulcer and inflammation of left lower extremity (principal); L97.822 Non-pressure chronic ulcer of other part of left lower leg with fat layer exposed; R60.0 Localized edema

== ENCOUNTER → 2025-05-02 | Outpatient (REF) | payer OTHER | LOC: WCC 09:21 | PROVIDERS: ATTEND Nurse Practitioner Family | DX: I87.332 Chronic venous hypertension (idiopathic) with ulcer and inflammation of left lower extremity (principal); L97.822 Non-pressure chronic ulcer of other part of left lower leg with fat layer exposed; R60.0 Localized edema; D68.61 Antiphospholipid syndrome ==

== ENCOUNTER → 2025-05-05 | Outpatient (REF) | payer OTHER | LOC: WCC 10:04 | PROVIDERS: ATTEND Nurse Practitioner Family | DX: I87.332 Chronic venous hypertension (idiopathic) with ulcer and inflammation of left lower extremity (principal); L97.822 Non-pressure chronic ulcer of other part of left lower leg with fat layer exposed; R60.0 Localized edema ==

== ENCOUNTER → 2025-05-12 | Outpatient (REF) | payer OTHER | LOC: WCC 10:30 | PROVIDERS: ATTEND Nurse Practitioner Family | DX: I87.332 Chronic venous hypertension (idiopathic) with ulcer and inflammation of left lower extremity (principal); L97.822 Non-pressure chronic ulcer of other part of left lower leg with fat layer exposed; R60.0 Localized edema ==

== ENCOUNTER → 2025-05-16 | Outpatient (REF) | payer OTHER | LOC: WCC 11:40 | PROVIDERS: ATTEND Nurse Practitioner Family | DX: I87.332 Chronic venous hypertension (idiopathic) with ulcer and inflammation of left lower extremity (principal); L97.822 Non-pressure chronic ulcer of other part of left lower leg with fat layer exposed; R60.0 Localized edema ==

== ENCOUNTER → 2025-05-19 | Outpatient (REF) | payer OTHER | LOC: WCC 10:58 | PROVIDERS: ATTEND Nurse Practitioner Family | DX: I87.332 Chronic venous hypertension (idiopathic) with ulcer and inflammation of left lower extremity (principal); L97.822 Non-pressure chronic ulcer of other part of left lower leg with fat layer exposed; R60.0 Localized edema ==

== ENCOUNTER → 2025-05-23 | Outpatient (REF) | payer OTHER | LOC: WCC 12:44 | PROVIDERS: ATTEND Nurse Practitioner Family | DX: I87.332 Chronic venous hypertension (idiopathic) with ulcer and inflammation of left lower extremity (principal); L97.822 Non-pressure chronic ulcer of other part of left lower leg with fat layer exposed; R60.0 Localized edema ==

== ENCOUNTER → 2025-05-26 | Outpatient (REF) | payer OTHER | LOC: WCC 15:22 | PROVIDERS: ATTEND Nurse Practitioner Family | DX: I87.332 Chronic venous hypertension (idiopathic) with ulcer and inflammation of left lower extremity (principal); L97.822 Non-pressure chronic ulcer of other part of left lower leg with fat layer exposed; R60.0 Localized edema ==

== ENCOUNTER → 2025-05-30 | Outpatient (REF) | payer OTHER | LOC: WCC 10:43 | PROVIDERS: ATTEND Nurse Practitioner Family | DX: I87.332 Chronic venous hypertension (idiopathic) with ulcer and inflammation of left lower extremity (principal); L97.822 Non-pressure chronic ulcer of other part of left lower leg with fat layer exposed; R60.0 Localized edema ==

== ENCOUNTER → 2025-06-02 | Outpatient (REF) | payer OTHER | LOC: WCC 13:59 | PROVIDERS: ATTEND Nurse Practitioner Family | DX: I87.332 Chronic venous hypertension (idiopathic) with ulcer and inflammation of left lower extremity (principal); L97.822 Non-pressure chronic ulcer of other part of left lower leg with fat layer exposed; R60.0 Localized edema ==

== ENCOUNTER → 2025-06-06 | Outpatient (REF) | payer OTHER | LOC: WCC 09:55 | PROVIDERS: ATTEND Nurse Practitioner Family | DX: I87.332 Chronic venous hypertension (idiopathic) with ulcer and inflammation of left lower extremity (principal); L97.822 Non-pressure chronic ulcer of other part of left lower leg with fat layer exposed; R60.0 Localized edema ==

== ENCOUNTER → 2025-06-13 | Outpatient (REF) | payer OTHER | LOC: WCC 10:23 | PROVIDERS: ATTEND Nurse Practitioner Family | DX: I87.332 Chronic venous hypertension (idiopathic) with ulcer and inflammation of left lower extremity (principal); L97.822 Non-pressure chronic ulcer of other part of left lower leg with fat layer exposed; R60.0 Localized edema ==

== ENCOUNTER → 2025-06-16 | Outpatient (REF) | payer OTHER | LOC: WCC 13:55 | PROVIDERS: ATTEND Nurse Practitioner Family | DX: I87.332 Chronic venous hypertension (idiopathic) with ulcer and inflammation of left lower extremity (principal); L97.822 Non-pressure chronic ulcer of other part of left lower leg with fat layer exposed ==

== ENCOUNTER → 2025-06-20 | Outpatient (REF) | payer OTHER | LOC: WCC 14:47 | PROVIDERS: ATTEND Nurse Practitioner Family | DX: R60.0 Localized edema (principal) ==

== ENCOUNTER → 2025-08-24 | Outpatient (REF) | payer OTHER | LOC: WCC 15:00 | PROVIDERS: ATTEND Internal Medicine Infectious Disease | DX: I87.332 Chronic venous hypertension (idiopathic) with ulcer and inflammation of left lower extremity (principal); L97.822 Non-pressure chronic ulcer of other part of left lower leg with fat layer exposed; R60.0 Localized edema ==